=== PATIENT | female | born 2000 | race Caucasian/White ===

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

== ENCOUNTER 2022-03-22 07:39 | Emergency (ER) | payer OTHER ==
[2022-03-22 09:21] LABS: Pregnancy Test - Urine (BHCG) Negative (Negative); Pregu Control Background? CLEAR/WHITE (CLR/WHITE); Pregu Control Bar Appear? YES (CONTROL BAR); Specific Gravity 1.025 (1.002-1.036)
[2022-03-22 09:21] LABS: Bilirubin Negative (Negative); Blood, Urine Negative (Negative); Clarity Cloudy (Clear); Glucose, Urine (Dipstick) Negative (Negative); Ketone, Urine Negative (Negative); Leukocyte Small (Negative); Nitrite Positive (Negative); Protein, Urine (Dipstick) Negative (Neg-Trace); Specific Gravity, Urine 1.025 (1.005-1.030)
[2022-03-22 09:22] LABS: Bacteria/HPF 3+ HPF (None Seen); RBC/HPF None Seen HPF (0-3); Squamous Epithelial 0-3 HPF (0-3); Transitional Epithelial 0-3 HPF (None Seen)
[2022-03-22] MEDS ORDERED: Cephalexin 250 MG CAP ONE (09:45)
[2022-03-23 16:00] LABS: Chlam.trachomatis by PCR,Urine DETECTED (NotDetected)
== END 2022-03-22 19:50 | disposition home or self-care (01) ==
LOC: BURERS 07:39
DX: A60.04 Herpesviral vulvovaginitis (principal); N39.0 Urinary tract infection, site not specified
CPT/HCPCS: 81003; 81015; 81025; 87491; 87591; 99283

== ENCOUNTER 2022-05-08 17:11 | Emergency (ER) | payer OTHER ==
[2022-05-08] MEDS ORDERED: cefTRIAXone\\ROCEPHIN 500 MG VIAL ONE (17:53)
[2022-05-08] MEDS ORDERED: Doxycycline 100 MG CAP ONE (17:53)
[2022-05-08] MEDS ORDERED: Acyclovir 400 mg Tablet ONE (17:53)
== END 2022-05-08 18:50 | disposition home or self-care (01) ==
LOC: BURERS 17:11
DX: A60.00 Herpesviral infection of urogenital system, unspecified (principal); N72 Inflammatory disease of cervix uteri; A54.9 Gonococcal infection, unspecified; N39.0 Urinary tract infection, site not specified
CPT/HCPCS: 96372; 99283; J0696